=== PATIENT | male | born 1990 | race Two or more races ===

== ENCOUNTER 2020-01-17 17:37 | Emergency (ER) | payer MEDICAID, OTHER ==
[~2020-01-17] VITALS: Ht 177.8 cm; Wt 86.2 kg
[2020-01-17 17:43] VITALS: BP 126/81
[2020-01-17] MEDS ORDERED: BACITRACIN TOP OINT 1 UD PKG TOP ONE (18:45)
[2020-01-17] MEDS ORDERED: LIDOCAINE 1% HCL (LOCAL ANESTH.) INJ 20ML MDV IJ ONE (18:45)
[2020-01-17] MEDS ORDERED: TETANUS-DIPTH-ACEL PERTUSSIS 0.5ML SYR Tdap IM ONE (18:45)
== END 2020-01-17 19:33 | disposition home or self-care (01) ==
LOC: ER 17:37
DX: S01.81XA Laceration without foreign body of other part of head, initial encounter (principal); F17.210 Nicotine dependence, cigarettes, uncomplicated; F12.10 Cannabis abuse, uncomplicated; W22.8XXA Striking against or struck by other objects, initial encounter; Y93.89 Activity, other specified; Y99.0 Civilian activity done for income or pay; Y92.89 Other specified places as the place of occurrence of the external cause
CPT/HCPCS: 12011; 90471; 90715; 99283; J2001